=== PATIENT | male | born 1975 | race Caucasian/White ===

== ENCOUNTER 2019-10-07 20:45 | Emergency (ER) | payer BC ==
[~2019-10-07] VITALS: Ht 180.3 cm; Wt 106.6 kg
[2019-10-07 20:56] VITALS: BP 141/92
--- NOTE | 2019-10-07 21:00 | NUR ---
EMT AT BEDSIDE FOR WOUND CARE
[2019-10-07] MEDS ORDERED: LIDOCAINE 1%-EPI 1:100,000 20 ML VIAL ONE (21:05)
[2019-10-07] MEDS ORDERED: IBUPROFEN 600 MG TABLET PO ONE (21:58)
[2019-10-07] MEDS: IBUPROFEN 600 MG TABLET PO ONE (22:01)
--- NOTE | 2019-10-07 22:02 | NUR ---
EMT AT BEDSIDE FOR WOUND CARE
--- NOTE | 2019-10-07 22:03 | NUR ---
Patient discharged to home in stable condition. Written and verbal after care instructions given. Patient verbalizes understanding of instruction. Pt ambulatory with steady gait. vss.
== END 2019-10-07 22:04 | disposition home or self-care (01) ==
LOC: ER 20:51
DX: S51.011A Laceration without foreign body of right elbow, initial encounter (principal); W25.XXXA Contact with sharp glass, initial encounter; Y93.89 Activity, other specified; Y92.89 Other specified places as the place of occurrence of the external cause; Y99.8 Other external cause status
CPT/HCPCS: 12002; 73080; 99283; A6403; J3490

== ENCOUNTER 2019-10-18 14:55 | Emergency (ER) | payer BC ==
[~2019-10-18] VITALS: Ht 180.3 cm; Wt 104.3 kg
[2019-10-18 15:06] VITALS: BP 152/100
== END 2019-10-18 15:34 | disposition home or self-care (01) ==
LOC: ER 15:04
DX: S51.011D Laceration without foreign body of right elbow, subsequent encounter (principal); X58.XXXD Exposure to other specified factors, subsequent encounter